=== PATIENT | female | born 1965 | race American Indian/Alaskan Native ===

== ENCOUNTER 2019-11-17 18:43 | Emergency (ER) | payer MEDICARE ==
[2019-11-17 19:28] VITALS: BP 195/104
--- NOTE | 2019-11-17 21:36 | Emergency Department Report ---
ED General Adult HPI - General Chief complaint: Dental/Oral Stated complaint: SWOLLEN FACE Source: patient Mode of arrival: Ambulatory Limitations: No Limitations - History of Present Illness Initial comments: Patient is a 54-year-old -[place] female with a history of hypertension who presents to the ED with complaint of acute onset persistent severe left mandibular pain and swelling with swollen and severely painful left mandibular gingiva and swollen anterior cervical lymph nodes with pain for the last 4 days, worse in the last 2 days. Patient states that she just had a premolar and molar teeth extraction from her left mandible and is currently on amoxicillin 500 mg twice a day and ibuprofen 800 mg twice a day as needed for pain. Patient states that she has taken these medications for 2 days but that in the last 12 hours, symptoms have gotten worse such that she is unable to open her mouth to eat. Patient denies fever, chills, nausea, vomiting, headache, dizziness, shortness of breath, swollen lips or tongue, swollen throat, cough, chest pain or shortness of breath. MD Complaint: left mandibular pain, swelling; cervical lymph node pain and swelling -: Sudden, days(s) (4) Location: mouth Radiation: neck Severity scale (0 -10): 9 Quality: aching, sharp Consistency: constant Improves with: none Worsens with: eating Associated Symptoms: denies other symptoms, loss of appetite, malaise. denies: confusion, chest pain, cough, diaphoresis, fever/chills, headaches, nausea/vomiting, rash, seizure, shortness of breath, syncope, weakness, other Treatments Prior to Arrival: NSAID - Related Data Previous Rx's Medication Instructions Recorded Last Taken Type Acetaminophen/Codeine [Tylenol 1 tab PO Q6H PRN #12 tab 11/17/19 Unknown Rx /Codeine # 3 tab] Clindamycin [Clindamycin CAP] 300 mg PO Q8HR #60 capsule 11/17/19 Unknown Rx Ketorolac [Toradol] 10 mg PO Q8H PRN #20 tablet 11/17/19 Unknown Rx Lidocaine Viscous 2% 10 ml PO Q4H PRN #120 ml 11/17/19 Unknown Rx predniSONE [Deltasone] 40 mg PO QDAY #10 tab 11/17/19 Unknown Rx Allergies Allergy/AdvReac Type Severity Reaction Status Date / Time No Known Allergies Allergy Unverified 11/17/19 19:28 ED Review of Systems ROS: Stated complaint: SWOLLEN FACE Other details as noted in HPI Constitutional: denies: chills, fever Eyes: denies: eye pain, eye discharge, vision change ENT: dental pain, other (Swollen, severely painful left mandibular gingiva with painful anterior cervical lymph nodes). denies: ear pain, throat pain Respiratory: denies: cough, shortness of breath, wheezing Cardiovascular: denies: chest pain, palpitations Endocrine: no symptoms reported Gastrointestinal: denies: abdominal pain, nausea, diarrhea Genitourinary: denies: urgency, dysuria, discharge Musculoskeletal: denies: back pain, joint swelling, arthralgia Skin: denies: rash, lesions Neurological: denies: headache, weakness, paresthesias Psychiatric: denies: anxiety, depression Hematological/Lymphatic: denies: easy bleeding, easy bruising ED Past Medical Hx - Past Medical History Previous Medical History?: Yes Hx Hypertension: Yes Additional medical history: MVP - Surgical History Past Surgical History?: No - Social History Smoking Status: Never Smoker Substance Use Type: None - Medications Home Medications: Home Medications Medication Instructions Recorded Confirmed Last Taken Type Acetaminophen/Codeine [Tylenol 1 tab PO Q6H PRN #12 tab 11/17/19 Unknown Rx /Codeine # 3 tab] Clindamycin [Clindamycin CAP] 300 mg PO Q8HR #60 capsule 11/17/19 Unknown Rx Ketorolac [Toradol] 10 mg PO Q8H PRN #20 tablet 11/17/19 Unknown Rx Lidocaine Viscous 2% 10 ml PO Q4H PRN #120 ml 11/17/19 Unknown Rx predniSONE [Deltasone] 40 mg PO QDAY #10 tab 11/17/19 Unknown Rx ED Physical Exam - General Limitations: No Limitations General appearance: alert, in no apparent distress - Head Head exam: Present: atraumatic, normocephalic, normal inspection - Eye Eye exam: Present: normal appearance, PERRL, EOMI Pupils: Present: normal accommodation - ENT ENT exam: Present: mucous membranes moist, TM's normal bilaterally, normal external ear exam, other (Swollen, severely tender left mandible and gingiva with swollen tender anterior cervical lymph nodes) - Neck Neck exam: Present: normal inspection, tenderness, full ROM, lymphadenopathy (Severely tender, swollen anterior cervical lymph nodes) - Respiratory Respiratory exam: Present: normal lung sounds bilaterally. Absent: respiratory distress, wheezes, rales, stridor, chest wall tenderness, accessory muscle use, decreased breath sounds, prolonged expiratory - Cardiovascular Cardiovascular Exam: Present: regular rate, normal rhythm, normal heart sounds. Absent: systolic murmur, diastolic murmur, rubs, gallop - GI/Abdominal GI/Abdominal exam: Present: soft, normal bowel sounds. Absent: tenderness, guarding, rebound, hyperactive bowel sounds, hypoactive bowel sounds, organomegaly - Extremities Exam Extremities exam: Present: normal inspection, full ROM, normal capillary refill - Back Exam Back exam: Present: normal inspection, full ROM. Absent: tenderness, CVA tenderness (R), CVA tenderness (L), muscle spasm, paraspinal tenderness, vertebral tenderness - Neurological Exam Neurological exam: Present: alert, oriented X3, CN II-XII intact, normal gait, reflexes normal - Psychiatric Psychiatric exam: Present: normal affect, normal mood - Skin Skin exam: Present: warm, dry, intact, normal color. Absent: rash ED Course Vital Signs 11/17/19 19:18 Temperature 98.7 F Pulse Rate 93 H Respiratory 18 Rate Blood Pressure 195/104 O2 Sat by Pulse 98 Oximetry ED Medical Decision Making - Medical Decision Making This is a 54-year-old -[place] female with a history of hypertension who presents to the ED with complaint of acute onset persistent severe left mandibular pain and swelling with swollen and severely painful left mandibular gingiva and swollen anterior cervical lymph nodes with pain for the last 4 days, worse in the last 2 days. Patient states that she just had a premolar and molar teeth extraction from her left mandible and is currently on amoxicillin 500 mg twice a day and ibuprofen 800 mg twice a day as needed for pain. Patient states that she has taken these medications for 2 days but that in the last 12 hours, symptoms have gotten worse such that she is unable to open her mouth to eat. In the ED, patient is alert and oriented x3 and is not in distress. Patient was treated for pain and also given initial oral antibiotics and a Decadron injection. Patient was discharged home on a new prescription of oral antibiotics and was advised to follow-up with her primary care physician or dentist in 7 to 10 days for reevaluation or return to the ED immediately if her symptoms get worse. - Differential Diagnosis Acute gingivitis; Lymphadenopathy; Dental abscess Critical care attestation.: If time is entered above; I have spent that time in minutes in the direct care of this critically ill patient, excluding procedure time. ED Disposition Clinical Impression: Anterior cervical lymphadenopathy, Acute gingivitis, Dental abscess Disposition: TO HOME OR SELFCARE Is pt being admited?: No Does the pt Need Aspirin: No Condition: Stable Instructions: Dental Abscess (ED), Gingivitis (ED), Lymphadenopathy (ED) Additional Instructions: Take medication with food, drink plenty of fluids and follow-up with your primary care physician or dentist in 5 to 7 days for reevaluation. Return to the ED immediately if symptoms get worse. Prescriptions: Clindamycin [Clindamycin CAP] 300 mg PO Q8HR #60 capsule predniSONE [Deltasone] 40 mg PO QDAY #10 tab Lidocaine Viscous 2% 10 ml PO Q4H PRN #120 ml PRN Reason: Pain , Severe (7-10) Ketorolac [Toradol] 10 mg PO Q8H PRN #20 tablet PRN Reason: Pain Acetaminophen/Codeine [Tylenol /Codeine # 3 tab] 1 tab PO Q6H PRN #12 tab PRN Reason: Pain , Severe (7-10) Referrals: MUMTAZ FERNANDEZ MD [Primary Care Provider] - 3-5 Days [facility] [Outside] - 3-5 Days Time of Disposition: 21:43 Print Language: SRI LANKAN
[2019-11-17] MEDS ORDERED: CLINDAMYCIN 300 MG CAP PO ONE (21:47)
[2019-11-17] MEDS ORDERED: HYDROcodone/ACETAMINOPHEN 7.5-325MG TAB PO ONE (21:47)
[2019-11-17] MEDS ORDERED: dexAMETHasone 20 MG/5 ML VIAL IM ONE (21:47)
[2019-11-17] MEDS ORDERED: KETOROLAC 30 MG/1 ML INJ IM ONE (21:47)
[2019-11-17] MEDS ORDERED: ONDANSETRON 4 MG ODT TAB PO ONE (21:48)
== END 2019-11-17 21:50 | disposition home or self-care (01) ==
LOC: ED 18:43
DX: R59.0 Localized enlarged lymph nodes (principal); K05.00 Acute gingivitis, plaque induced; K04.7 Periapical abscess without sinus; I10 Essential (primary) hypertension; Z79.2 Long term (current) use of antibiotics; Z79.899 Other long term (current) drug therapy
CPT/HCPCS: 96372; 99282; J1100; J1885; Q0162